=== PATIENT | female | born 1995 | race African-American/Black ===

== ENCOUNTER 2024-03-29 07:16 | Emergency (ER) | payer MEDICAID ==
[~2024-03-29] VITALS: Ht 160 cm; Wt 61.2 kg
[2024-03-29 07:41] VITALS: TEMP 98.3; O2SAT 100
[2024-03-29] MEDS: ONDANSETRON HCL 4MG/2ML INJ IV STA (08:55)
[2024-03-29] MEDS: SODIUM CHLORIDE 0.9% 1,000 ML IV ONE (08:55)
[2024-03-29] MEDS: FAMOTIDINE 20MG/2ML VIAL IV ONE (08:55)
[2024-03-29 09:12] LABS: CLARITY URINE CLEAR (CLEAR); COLOR URINE YELLOW (YELLOW); GLUCOSE URINE NEGATIVE (NEGATIVE); KETONES URINE 2+ (NEGATIVE); LEUKOCYTE ESTERASE URINE NEGATIVE (NEGATIVE); NITRITE URINE NEGATIVE (NEGATIVE); OCCULT BLOOD URINE NEGATIVE (NEGATIVE); PH URINE 6.5 (4.5-8.0); PROTEIN URINE NEGATIVE (NEGATIVE); SPECIFIC GRAVITY URINE 1.007 (1.005-1.030); UROBILINOGEN URINE 0.2 E.U./dL (0.2-1.0)
[2024-03-29 09:50] LABS: HEMATOCRIT. 44.5 % (36.0-48.0); MEAN CORPUSCULAR HEMOGLOBIN 30.2 pg (28.0-32.0); MEAN CORPUSCULAR HGB CONC 33.7 g/dL (31.0-37.0); MEAN CORPUSCULAR VOLUME 89.4 fL (81.0-99.0); MEAN PLATELET VOLUME 8.9 fl (7.4-10.4); PLATELET 184 x1000/uL (130-400); RED BLOOD CELL COUNT 4.98 mill/uL (4.2-5.4); RED CELL DISTRIBUTION WIDTH 13.6 % (11.6-14.6); WHITE BLOOD COUNT 3.8 x1000/uL (4.5-11.0)
[2024-03-29 10:00] LABS: CHLORIDE 102 mEq/L (98-107); POTASSIUM 3.4 mEq/L (3.5-5.1); SODIUM 138 mEq/L (136-145)
[2024-03-29 10:01] LABS: CALCIUM 9.5 mg/dL (8.7-10.4); CARBON DIOXIDE 27 mEq/L (21-32)
[2024-03-29 10:06] LABS: CREATININE 0.8 mg/dL (0.6-1.0); GLUCOSE 90 mg/dL (70-105); UREA NITROGEN BLOOD 7 mg/dL (9-23)
[2024-03-29 10:08] LABS: ALANINE AMINOTRANSFERASE 25 IU/L (10-49); ALBUMIN 4.5 g/dL (3.2-4.8); ASPARTATE AMINOTRANSFERASE 34 IU/L (<34); BILIRUBIN DIRECT 0.3 mg/dL (<=3.0); BILIRUBIN TOTAL 0.8 mg/dL (0.1-1.0); PROTEIN TOTAL 7.6 g/dL (6.0-8.3)
[2024-03-29 10:14] LABS: DIFFERENTIAL COMMENT 1
[2024-03-29 10:23] LABS: TROPONIN I HIGH SENSITIVITY 6 ng/L (3.0-34)
[2024-03-29 10:42] LABS: HCG SCREEN NEGATIVE
[2024-03-29] MEDS ORDERED: ONDA4TAB50 MT (10:51)
[2024-03-29] MEDS ORDERED: FAMO-135 MT (10:52)
[2024-03-29] MEDS ORDERED: L.AC1CAP6 MT (10:52)
[2024-03-29 11:07] VITALS: BP 130/57; PULSE 66; RESP 16; O2SAT 97
[2024-03-29 11:09] LABS: PLATELET ESTIMATE NORMAL
== END 2024-03-29 11:09 | disposition home or self-care (01) ==
LOC: ER 07:16
DX: A08.39 Other viral enteritis (principal)
CPT/HCPCS: 80076; 80048; 81003; 84703; 83880; 83690; 85025; 85379; 84484; 36415; 71045; 93005; 96361; 96374; 96375; 99285; J3490; J2405; J7030; Z7610 ×4